=== PATIENT | male | born 1950 | race Caucasian/White ===

== ENCOUNTER 2017-07-13 12:39 | Inpatient (IN) | payer MEDICARE, BC ==
[~2017-07-13] VITALS: Ht 175.3 cm; Wt 111.8 kg
[~2017-07-13 12:39] MED LIST: AMBIEN10 MG PO; AMLODIPINE BESY10 MG PO; CIALIS20 MG PO; LISINOPRIL-HCT1 EAC1 PO; LORTAB 10-5001 EACH PO; NEXIUM40 MG PO; SOMA350 MG PO; VITAMIN AND MI1 EACH PO
[2017-07-13] MEDS ORDERED: IPRATROPIUM BROMIDE 0.02% 2.5 ML NEB NEB STA (12:42)
[2017-07-13] MEDS ORDERED: VANCOMYCIN 1GM/NS 250 ML 250 ML IV STA (12:42)
[2017-07-13] MEDS ORDERED: ALBUTEROL SULF 0.083% NEB SOLN 3 ML NEB NEB STA (12:42)
[2017-07-13] MEDS ORDERED: SODIUM CHLORIDE 0.9% 1000ML 1,000 ML IV STA ×3 (12:42→13:07)
[2017-07-13] MEDS: CEFEPIME HCL 2 GM VIAL IV SCH (12:59)
[2017-07-13] MEDS: VANCOMYCIN 1GM/NS 250 ML 250 ML IV SCH (13:11)
--- NOTE | 2017-07-13 13:15 | Diagnostic Imaging Report ---
PROCEDURE: A single AP view of the chest. COMPARISON: Patients [facility], DX, CHEST SINGLE, 07/03/2009, 17:30. INDICATIONS: DEHYDRATED FINDINGS: Lines/tubes: None. Lungs: The lungs are hypoinflated, but grossly clear. There is no evidence of consolidation or pulmonary edema. Pleura: There is no pleural effusion or pneumothorax. Heart and mediastinum: Prominence of the cardiac silhouette and central venous crowding likely due to low lung volumes. Bones: No acute bony abnormality. IMPRESSION: 1. Hypoinflated lungs, without acute cardiopulmonary disease. Garcia Dooley M.D. Dictated by: Garcia Dooley M.D. on 07/13/2017 at 13:22 Electronically approved by: Garcia Dooley M.D. on 07/13/2017 at 13:22
[2017-07-13 13:41] LABS: BASOPHILS % 0.7 % (0.0-1.0); EOSINOPHILS # (AUTO) 0.1 (0.0-0.4); EOSINOPHILS % 1.5 % (0.0-6.0); HEMATOCRIT 34.7 % (38.2-49.6); HEMOGLOBIN 11.4 g/dL (14.0-18.0); LYMPHOCYTES # (AUTO) 1.7 (1.0-3.2); LYMPHOCYTES % 27.3 % (18.0-39.1); MEAN CORPUSCULAR HEMOGLOBIN 33.6 pg (28-32); MEAN CORPUSCULAR HGB CONC 32.9 g/dL (31-35); MEAN CORPUSCULAR VOLUME 102.4 fL (81-99); MONOCYTES # (AUTO) 0.6 (0.2-0.8); NEUTROPHILS # (AUTO) 3.7 (2.1-6.9); PLATELET COUNT 175 x10e3/uL (140-360); RED BLOOD COUNT 3.39 x10e6/uL (4.3-5.7); RED CELL DISTRIBUTION WIDTH 12.9 % (11.7-14.4)
[2017-07-13 13:44] LABS: INR 1.06; PARTIAL THROMBOPLASTIN TIME 40.6 seconds (23.8-35.5); PROTHROMBIN TIME 14.3 seconds (11.9-14.5)
[2017-07-13 13:52] LABS: ALBUMIN 2.8 g/dL (3.5-5.0); ALBUMIN/GLOBULIN RATIO 0.7 (0.8-2.0); ANION GAP 13.4 mmol/L (8-16); CALCIUM 9.1 mg/dL (8.4-10.2); CREATININE, SERUM 1.39 mg/dL (0.72-1.25); MAGNESIUM 1.9 MG/DL (1.3-2.1); POTASSIUM 3.4 mmol/L (3.5-5.1)
[2017-07-13 13:57] LABS: CREATINE KINASE MB 0.6 ng/mL (0.00-5.00); TROPONIN I 0.017 ng/mL (0-0.300)
[2017-07-13] MEDS ORDERED: LIDOCAINE HCL 1% LOCAL INJ 20 ML VIAL INJ ONE (14:15)
[2017-07-13 14:19] LABS: B-TYPE NATRIURETIC PEPTIDE2 96.3 pg/mL (0-100)
[2017-07-13] MEDS ORDERED: SODIUM CHLORIDE 0.9% 500ML 500 ML ONE (14:29)
[2017-07-13] MEDS ORDERED: NOREPINEPHRINE BITARTRATE/ NS 250 ML ONE (14:37)
[2017-07-13] MEDS: NOREPINEPHRINE BITARTRATE/ NS 250 ML IV SCH (14:40)
[2017-07-13] MEDS: SODIUM CHLORIDE 0.9% 1000ML 1,000 ML IV SCH (15:50)
[2017-07-13 16:08] LABS: BILIRUBIN,URINE NEGATIVE (NEGATIVE); CLARITY,URINE CLOUDY (CLEAR); COLOR,URINE YELLOW (YELLOW); KETONES,URINE NEGATIVE (NEGATIVE); LEUKOCYTE ESTERASE ,URINE 2+ (NEGATIVE); PROTEIN,URINE DIPSTICK NEGATIVE (NEGATIVE); URINE UROBILINOGEN 0.2 mg/dL (0.2 - 1)
[2017-07-13 16:11] LABS: NITRITE,URINE POSITIVE (NEGATIVE)
--- NOTE | 2017-07-13 16:18 | Diagnostic Imaging Report ---
Exam: Head CT without contrast History: Altered mental status, weakness Comparison studies: None Technique: Axial images were obtained from the skull base to the vertex. Coronal and sagittal images reconstructed from the axial data. Intravenous contrast: None Findings: Scalp: No abnormalities. Bones: No fractures, blastic or lytic lesions. Brain volume: Generalized volume loss with moderate disproportionate volume loss in the bilateral frontal lobes. Ventricles: Moderate compensatory dilatation of the frontal horns, bodies of the lateral ventricles and third ventricle mild compensatory dilatation of the fourth ventricle. No hydrocephalus. Extra-axial spaces: No masses, no fluid collection. Parenchyma: No mass, acute hemorrhage or acute cortical vascular insults. Confluent hypodensities in the supratentorial white matter are nonspecific most compatible with chronic small vessel ischemic changes. Small chronic lacunar infarct in the anterior limb of the left internal capsule and along the left thalamic capsular junction. Multiple small chronic insults in the left cerebellum. Sellar/suprasellar region: No abnormalities. Craniocervical junction: Patent foramen magnum. No Chiari one malformation. Incidental findings: Atherosclerotic calcifications in the carotid siphons and right intradural vertebral artery. IMPRESSION: No acute intracranial abnormalities. Chronic findings: 1. Generalized volume loss with a bifrontal predominance. 2. Severe chronic microvascular ischemic changes. 3. Chronic insults in the left cerebellum, anterior limb of the left internal capsule and left thalamic capsular junction. Signed by: Dr. Jacob Marinelli M.D. on 07/13/2017 4:15 PM
[2017-07-13 16:22] LABS: RBC,URINE 21-50 /HPF (0-5); WBC,URINE (MAN) >50 /HPF (0-5)
[2017-07-13 16:23] LABS: BACTERIA,URINE MANY /HPF; EPITHELIAL CELLS,URINE RARE /LPF
--- NOTE | 2017-07-13 16:28 | Diagnostic Imaging Report ---
PROCEDURE:US ABDOMEN LIMITED COMPARISON:None. INDICATIONS:Eval For Ascites TECHNIQUE: Villafuerte-scale and color doppler transverse and longitudinal images of the abdominal quadrants were obtained. FINDINGS: No ascites is visualized. CONCLUSION: 1. No ascites Garcia Dooley M.D. Dictated by: Garcia Dooley M.D. on 07/13/2017 at 16:36 Electronically approved by: Garcia Dooley M.D. on 07/13/2017 at 16:36
--- NOTE | 2017-07-13 17:41 | History and Physical ---
PRIMARY CARE PHYSICIAN: Dr. Vicente. CHIEF COMPLAINT: Unresponsiveness. HISTORY OF PRESENT ILLNESS: This is a 67-year-old man with a history of cirrhosis and hepatic encephalopathy who lives at [facility], now found unresponsive, therefore, brought to the hospital. The patient's daughter said that the patient had been having chills for the past few days. He was found to have urinary tract infection and signs of sepsis and is admitted for further evaluation and management. He has been started on pressors. PAST MEDICAL HISTORY: Hepatic encephalopathy, cirrhosis, severe anemia, gastric ulcer, peptic ulcer disease, status post surgical management, chronic pain, hypertension, GI bleeding, insomnia, vitamin D deficiency. Tobacco use in the form of dipping. PAST SURGICAL HISTORY: Scrotal cyst removal, right total knee replacement in 2008, esophageal dilatation in 2002. ALLERGIES: PER ELECTRONIC MEDICAL RECORDS. SOCIAL HISTORY: The patient is a . He has 2 children. History of alcohol abuse and tobacco abuse. Continues to chew tobacco. MEDICATIONS: Per electronic medical records. REVIEW OF SYSTEMS: Unreliable. PHYSICAL EXAMINATION VITAL SIGNS: Have been reviewed. GENERAL APPEARANCE: A tired-appearing man resting in the bed. HEENT: Anicteric. CARDIOVASCULAR: Normal S1 and S2. LUNGS: Moderate breath sounds, ABDOMEN: Soft and nontender. Nondistended. EXTREMITIES: There is no edema or calf tenderness. NEUROLOGIC: Alert and oriented x2. Moving all extremities. SKIN: Dry. PSYCHIATRIC: Flat affect. LABS: Reviewed. MEDICATIONS: Reviewed. ASSESSMENT AND PLAN: A 67-year-old man. 1. Septic shock, likely due to urinary tract infection. Continue broad-spectrum antibiotics and follow up cultures. 2. Urinary tract infection. Antibiotics. Follow up cultures. 3. Acute kidney injury. Rehydrate and reassess. 4. Hepatic encephalopathy. Ammonia level in the 80s. Use Lactulose 30 grams t.i.d. 5. Hypotension on pressors. 6. Normocytic anemia, mild. Will follow. 7. Physical deconditioning. Physical therapy consultation. 8. Prophylaxis: Use SCDs and Pepcid. DISPOSITION: Monitor closely. Will continue pressors. Critical care time more than 35 minutes. Job#: [id number]
[2017-07-13] MEDS: LACTULOSE SYRUP 20 GM/30 ML UDC PO SCH (18:23)
[2017-07-13] MEDS: FAMOTIDINE 20 MG/2 ML VIAL IV SCH (18:23)
[2017-07-13 21:52] LABS: CREATINE KINASE MB 1.2 ng/mL (0.00-5.00); TROPONIN I 0.017 ng/mL (0-0.300)
[2017-07-14] VITALS (32 sets, daily range): BP systolic 73–144; BP diastolic 47–93
[2017-07-14] MEDS ORDERED: VANCOMYCIN 1GM/NS 250 ML 250 ML IV SCH (02:00)
[2017-07-14] MEDS ORDERED: CEFEPIME HCL 2 GM VIAL IV SCH ×2 (02:00→22:00)
[2017-07-14 04:55] LABS: BASOPHILS # (AUTO) 0.1 (0.0-0.1); EOSINOPHILS # (AUTO) 0.2 (0.0-0.4); EOSINOPHILS % 2.6 % (0.0-6.0); HEMATOCRIT 32.4 % (38.2-49.6); HEMOGLOBIN 10.9 g/dL (14.0-18.0); LYMPHOCYTES # (AUTO) 1.8 (1.0-3.2); LYMPHOCYTES % 29.8 % (18.0-39.1); MEAN CORPUSCULAR HEMOGLOBIN 33.6 pg (28-32); MEAN CORPUSCULAR HGB CONC 33.6 g/dL (31-35); MONOCYTES # (AUTO) 0.5 (0.2-0.8); MONOCYTES % 8.6 % (4.4-11.3); NEUTROPHILS # (AUTO) 3.5 (2.1-6.9); NEUTROPHILS % 57.8 % (38.7-80.0); PLATELET COUNT 135 x10e3/uL (140-360); RED BLOOD COUNT 3.24 x10e6/uL (4.3-5.7); RED CELL DISTRIBUTION WIDTH 12.5 % (11.7-14.4)
[2017-07-14 05:10] LABS: ANION GAP 11.3 mmol/L (8-16); BLOOD UREA NITROGEN 10 mg/dL (7-26); BUN/CREATININE RATIO 13 (6-25); CALCIUM 8.4 mg/dL (8.4-10.2); CARBON DIOXIDE 25 mmol/L (22-29); CHLORIDE 108 mmol/L (98-107); CREATINE KINASE 58 IU/L (30-200); EST GLOMERULAR FILTRATION RATE > 60 ML/MIN (60-); GLUCOSE 124 mg/dL (74-118); POTASSIUM 3.3 mmol/L (3.5-5.1); SODIUM 141 mmol/L (136-145)
[2017-07-14 05:17] LABS: TROPONIN I 0.019 ng/mL (0-0.300)
[2017-07-14] MEDS: NOREPINEPHRINE BITARTRATE/ NS 250 ML IV SCH ×2 (09:00→11:14)
--- NOTE | 2017-07-14 09:05 | Progress Note ---
DATE: July 14, 2017 TIME: 8:30 a.m. OVERNIGHT: No events. REVIEW OF SYSTEMS: Unreliable. VITAL SIGNS: Reviewed. PHYSICAL EXAMINATION GENERAL: A tired-appearing man resting in bed. HEENT: Anicteric. CARDIOVASCULAR: Normal S1 and S2. LUNGS: Moderate breath sounds, mildly coarse. ABDOMEN: Soft and nontender. EXTREMITIES: No edema. SKIN: Dry. PSYCHIATRIC: Flat affect. Alert and oriented times 2. LABS: Reviewed. MEDICATIONS: Reviewed. ASSESSMENT AND PLAN: A 67-year-old man. 1. Septic shock due to urinary tract infection. 2. Urinary tract infection. 3. Acute kidney injury. 4. Hepatic encephalopathy. 5. Normocytic anemia, mild to moderate. 6. Physical deconditioning. 7. Hypokalemia. PLAN 1. Acute kidney injury is improving. 2. Continue pressor support. 3. Continue IV antibiotics. 4. Follow up cultures. 5. Continue current care and monitor closely. 6. Obtain vancomycin trough before the dose this evening and continue cefepime. Critical care time more than 35 minutes. Job#: [id number]
[2017-07-14] MEDS: CEFEPIME HCL 2 GM VIAL IV SCH (10:30)
[2017-07-14] MEDS: VANCOMYCIN 1GM/NS 250 ML 250 ML IV SCH ×2 (10:35→22:50)
[2017-07-14] MEDS: FAMOTIDINE 20 MG/2 ML VIAL IV SCH ×2 (10:57→18:34)
[2017-07-14] MEDS: SODIUM CHLORIDE 0.9% 1000ML 1,000 ML IV SCH ×3 (10:57→19:00)
[2017-07-14] MEDS: LACTULOSE SYRUP 20 GM/30 ML UDC PO SCH ×2 (10:57→18:34)
[2017-07-15] VITALS (54 sets, daily range): BP systolic 62–142; BP diastolic 27–133
[2017-07-15] MEDS: SODIUM CHLORIDE 0.9% 1000ML 1,000 ML IV SCH ×3 (00:32→18:14)
[2017-07-15 07:05] LABS: BASOPHILS % 0.6 % (0.0-1.0); EOSINOPHILS # (AUTO) 0.2 (0.0-0.4); EOSINOPHILS % 2.4 % (0.0-6.0); HEMATOCRIT 30.8 % (38.2-49.6); HEMOGLOBIN 10.5 g/dL (14.0-18.0); LYMPHOCYTES # (AUTO) 1.7 (1.0-3.2); LYMPHOCYTES % 28.1 % (18.0-39.1); MEAN CORPUSCULAR HEMOGLOBIN 33.8 pg (28-32); MEAN CORPUSCULAR HGB CONC 34.1 g/dL (31-35); MONOCYTES # (AUTO) 0.6 (0.2-0.8); MONOCYTES % 9.4 % (4.4-11.3); NEUTROPHILS # (AUTO) 3.7 (2.1-6.9); NEUTROPHILS % 59.3 % (38.7-80.0); PLATELET COUNT 136 x10e3/uL (140-360); RED BLOOD COUNT 3.11 x10e6/uL (4.3-5.7); RED CELL DISTRIBUTION WIDTH 12.3 % (11.7-14.4)
[2017-07-15 07:23] LABS: ANION GAP 10.1 mmol/L (8-16); BLOOD UREA NITROGEN 6 mg/dL (7-26); BUN/CREATININE RATIO 10 (6-25); CALCIUM 8.5 mg/dL (8.4-10.2); CARBON DIOXIDE 27 mmol/L (22-29); CHLORIDE 106 mmol/L (98-107); CREATININE, SERUM 0.62 mg/dL (0.72-1.25); EST GLOMERULAR FILTRATION RATE > 60 ML/MIN (60-); GLUCOSE 106 mg/dL (74-118); MAGNESIUM 1.6 MG/DL (1.3-2.1); POTASSIUM 3.1 mmol/L (3.5-5.1); SODIUM 140 mmol/L (136-145)
--- NOTE | 2017-07-15 07:24 | Progress Note ---
DATE: July 15, 2017 TIME: 6:00 a.m. OVERNIGHT: Patient remains on pressors. REVIEW OF SYSTEMS: Unreliable. PHYSICAL EXAMINATION: VITAL SIGNS: Reviewed. GENERAL APPEARANCE: Tired-appearing man resting in bed. HEENT: Anicteric. CARDIOVASCULAR: Normal S1 and S2. LUNGS: Moderate breath sounds. ABDOMEN: Soft, nontender. EXTREMITIES: No edema. SKIN: Dry. PSYCHIATRIC: Flat affect. NEUROLOGICAL: Confused. LABS: Reviewed. MEDICATIONS: Reviewed. ASSESSMENT: A 67-year-old man: 1. Septic shock due to urinary tract infection. 2. Urinary tract infection. 3. Acute kidney injury. 4. Hepatic encephalopathy. 5. Normocytic anemia, mild to moderate. 6. Acute delirium. 7. Physical deconditioning. 8. Hypokalemia. 9. Gram-negative elizabeth urinary tract infection. 10. Microcytic anemia, mild to moderate. PLAN: 1. Continue IV antibiotics, broad-spectrum, vancomycin and cefepime. 2. Follow up cultures. 3. Continue pressors and wean as appropriate. 4. Continue fluids. 5. Obtain labs this morning. 6. Continue supportive care in the ICU. Critical care time more than 35 minutes. Job#: [id number]
[2017-07-15 07:38] LABS: PHOSPHORUS 2.6 MG/DL (2.3-4.7)
[2017-07-15] MEDS ORDERED: POTASSIUM CHLORIDE 20 MEQ TAB CR PO STA (09:06)
[2017-07-15] MEDS: FAMOTIDINE 20 MG/2 ML VIAL IV SCH ×2 (09:23→17:02)
[2017-07-15] MEDS: LACTULOSE SYRUP 20 GM/30 ML UDC PO SCH ×2 (09:23→17:02)
[2017-07-15] MEDS: VANCOMYCIN 1GM/NS 250 ML 250 ML IV SCH (11:00)
[2017-07-15] MEDS: MEROPENEM 500 MG VIAL IV SCH ×3 (12:54→23:47)
[2017-07-15] MEDS ORDERED: PNEUMOCOCCAL VACCINE POLYVALENT 23 MCG/0.5 ML VIAL IM NR (13:00)
[2017-07-15] MEDS ORDERED: INFLUENZA VIRUS VAC SPLIT INJ 0.5 ML SYR IM NR (13:00)
--- NOTE | 2017-07-15 13:52 | Consultation ---
DATE OF CONSULTATION: July 15, 2017 INFECTIOUS DISEASE CONSULTATION ATTENDING PHYSICIAN: Dr. Dylan Warner REASON FOR CONSULTATION: ESBL in urine. Thank you, Dr. Warner, for asking me to see this patient. HISTORY: The patient is a 67-year-old man referred for ESBL in urine. He is unable to give a reliable history due to confusion. The chart review showed that he was admitted through the emergency department with possible severe sepsis with shock. He was sent to the emergency department from a residential on 07/13/2017 with altered mental status and hypotension. In the emergency department, he was noted to have temperature of 97.4 degrees Fahrenheit, pulse 66, respiratory rate 24, blood pressure 69/48, and oxygen saturation 96% on room air. Initial laboratory studies showed white blood cell count of 6,110 with 60% neutrophils, BUN 13, creatinine 1.39, AST 62, ALT 30, alk phos 203, total bilirubin 2.1, and serum ammonia 81. Brain CT scan showed no acute findings. Chest x-ray showed hypoinflated lungs without acute cardiopulmonary disease. Also, abdominal ultrasound showed no ascites. PAST MEDICAL HISTORY 1. Hypertension. 2. Alcoholic liver cirrhosis. 3. Hepatic encephalopathy. 4. Peptic ulcer disease. 5. Gastrointestinal bleed 6. Chronic pain. PAST SURGICAL HISTORY 1. Scrotal cyst removal. 2. Right total knee arthroplasty. ALLERGIES: NO KNOWN DRUG ALLERGIES. MEDICATIONS: The current antibiotics are vancomycin 1 g IV piggyback q.12 h. and meropenem 500 mg IV piggyback q.8 h. IMMUNIZATIONS: The patient claimed that he has not received influenza or pneumococcal vaccination. FAMILY HISTORY: Noncontributory. SOCIAL HISTORY: He chews tobacco. Also, he drank alcohol a lot. He currently resides in a residential. REVIEW OF SYSTEMS: Patient denies fever, chills, cough, shortness of breath, nausea, vomiting, diarrhea. PHYSICAL EXAMINATION GENERAL: No acute distress. VITAL SIGNS: T-max 98.9, pulse 83, respiratory rate 18, blood pressure 122/72, weight 253 pounds. HEENT: Normocephalic. There is no icterus or injection of conjunctivae. There is no ear or nasal discharge. Moist oral mucosa. No pharyngeal erythema or exudate. NECK: Supple. No lymphadenopathy. LUNGS: Good air entry bilaterally. HEART: Normal S1 and S2. ABDOMEN: Soft, nontender. EXTREMITIES: No edema, clubbing or cyanosis. SKIN: There is old ecchymosis. No acute erythema. BIOMEDICAL SERVICE ENGINEER: Awake but confused. LABORATORY: WBC 6190, hemoglobin 10.5, platelets 136,000, neutrophils 69.3, lymphocytes 28.1, monocytes 9.4, eosinophils 2.4, basophils 0.6. BUN 6, creatinine 0.62. Blood culture no growth. Urine culture grew Escherichia coli, ESBL positive. IMPRESSION 1. Urinary tract infection with sepsis due to Escherichia coli, extended spectrum beta lactamase positive. 2. Hepatic encephalopathy. 3. Alcoholic liver cirrhosis. PLAN 1. Change meropenem to 500 mg IV piggyback q.6 h. and stop vancomycin. Administer influenza and pneumococcal vaccinations if not yet given. 2. I will discuss tobacco cessation when the confusion improves. Job#: [id number]
[2017-07-15] MEDS ORDERED: MEROPENEM 500MG 500 MG in SODIUM CHLORIDE 0.9% 50ML 50 ML IV SCH (14:00)
[2017-07-15] MEDS ORDERED: MEROPENEM 500 MG VIAL IV SCH (14:00)
[2017-07-15] MEDS: NOREPINEPHRINE BITARTRATE/ NS 250 ML IV SCH (14:42)
[2017-07-15] MEDS ORDERED: LORAZEPAM INJ 2 MG/ML VIAL IV PRN (16:00)
[2017-07-15] MEDS: QUETIAPINE FUMARATE 25 MG TAB PO SCH (17:02)
[2017-07-16] VITALS (33 sets, daily range): BP systolic 61–157; BP diastolic 39–95
[2017-07-16] MEDS: SODIUM CHLORIDE 0.9% 1000ML 1,000 ML IV SCH ×3 (03:20→19:35)
[2017-07-16] MEDS: MEROPENEM 500 MG VIAL IV SCH ×3 (06:06→17:13)
--- NOTE | 2017-07-16 06:16 | Progress Note ---
DATE: July 16, 2017 TIME: 5:41 a.m. OVERNIGHT: No events. Patient off pressors. Remains confused. REVIEW OF SYSTEMS: Denies any chest pain. PHYSICAL EXAMINATION VITAL SIGNS: Reviewed. GENERAL: Tired-appearing man resting in bed. HEENT: Anicteric. CARDIOVASCULAR: Normal S1/S2. LUNGS: Moderate breath sounds. ABDOMEN: Soft, nontender. EXTREMITIES: No edema. SKIN: Dry. PSYCHIATRIC: Flat affect. NEUROLOGICAL: Confused. LABS: Reviewed. MEDICATIONS: Reviewed. ASSESSMENT: A 67-year-old man. 1. Septic shock due to urinary tract infection. 2. Urinary tract infection. 3. Acute kidney injury. 4. Hepatic encephalopathy. 5. Normocytic anemia, mild to moderate. 6. Acute delirium. 7. Physical deconditioning. 8. Hypokalemia. 9. Microcytic anemia, mild to moderate. 10. Extended spectrum beta-lactamase Escherichia coli urinary tract infection. PLAN 1. Continue IV meropenem. 2. Continue IV fluids. 3. Continue Seroquel. 4. Transfer to the floor. 5. Continue supportive care, off of pressors, doing well. 6. Check potassium level today. CRITICAL CARE TIME: More than 35 minutes. Job#: [id number] CQ
[2017-07-16] MEDS: FAMOTIDINE 20 MG/2 ML VIAL IV SCH ×2 (08:33→17:13)
[2017-07-16] MEDS: QUETIAPINE FUMARATE 25 MG TAB PO SCH ×2 (08:33→22:56)
[2017-07-16] MEDS: LACTULOSE SYRUP 20 GM/30 ML UDC PO SCH ×2 (08:33→17:13)
[2017-07-16] MEDS ORDERED: POTASSIUM CHLORIDE 20MEQ/15ML UDC NG ONE (11:00)
[2017-07-16] MEDS: NOREPINEPHRINE BITARTRATE/ NS 250 ML IV SCH (13:51)
[2017-07-17] VITALS: BP 138/73
[2017-07-17] MEDS: MEROPENEM 500 MG VIAL IV SCH ×4 (00:32→17:58)
[2017-07-17 04:00] VITALS: BP 145/81
[2017-07-17] MEDS: SODIUM CHLORIDE 0.9% 1000ML 1,000 ML IV SCH ×3 (05:06→22:02)
[2017-07-17 08:00] VITALS: BP 150/84
[2017-07-17] MEDS: LACTULOSE SYRUP 20 GM/30 ML UDC PO SCH ×2 (09:15→17:58)
[2017-07-17] MEDS: FAMOTIDINE 20 MG/2 ML VIAL IV SCH ×2 (09:15→17:58)
[2017-07-17] MEDS: QUETIAPINE FUMARATE 25 MG TAB PO SCH ×2 (09:15→21:00)
[2017-07-17 12:00] VITALS: BP 140/78
[2017-07-17 16:00] VITALS: BP 137/87
[2017-07-17 20:00] VITALS: BP 145/81
[2017-07-18] VITALS: BP 152/77
[2017-07-18] MEDS: MEROPENEM 500 MG VIAL IV SCH ×4 (00:28→18:00)
[2017-07-18] MEDS: SODIUM CHLORIDE 0.9% 1000ML 1,000 ML IV SCH ×3 (03:00→22:01)
[2017-07-18 04:00] VITALS: BP 130/67
[2017-07-18 08:00] VITALS: BP 174/102
[2017-07-18] MEDS: LACTULOSE SYRUP 20 GM/30 ML UDC PO SCH ×2 (09:41→18:00)
[2017-07-18] MEDS: FAMOTIDINE 20 MG/2 ML VIAL IV SCH ×2 (09:41→18:00)
[2017-07-18] MEDS: QUETIAPINE FUMARATE 25 MG TAB PO SCH ×2 (09:41→21:58)
[2017-07-18 10:43] LABS: BASOPHILS % 0.8 % (0.0-1.0); EOSINOPHILS # (AUTO) 0.2 (0.0-0.4); EOSINOPHILS % 3.3 % (0.0-6.0); HEMATOCRIT 31.8 % (38.2-49.6); HEMOGLOBIN 10.5 g/dL (14.0-18.0); LYMPHOCYTES # (AUTO) 1.6 (1.0-3.2); LYMPHOCYTES % 32.3 % (18.0-39.1); MEAN CORPUSCULAR HEMOGLOBIN 32.9 pg (28-32); MEAN CORPUSCULAR VOLUME 99.7 fL (81-99); MONOCYTES # (AUTO) 0.5 (0.2-0.8); MONOCYTES % 9.5 % (4.4-11.3); NEUTROPHILS # (AUTO) 2.6 (2.1-6.9); NEUTROPHILS % 53.9 % (38.7-80.0); PLATELET COUNT 140 x10e3/uL (140-360); RED BLOOD COUNT 3.19 x10e6/uL (4.3-5.7); RED CELL DISTRIBUTION WIDTH 12.4 % (11.7-14.4)
[2017-07-18 11:08] LABS: ANION GAP 10.5 mmol/L (8-16); BLOOD UREA NITROGEN < 5 mg/dL (7-26); CALCIUM 8.4 mg/dL (8.4-10.2); CARBON DIOXIDE 28 mmol/L (22-29); CHLORIDE 121 mmol/L (98-107); CREATININE, SERUM 0.62 mg/dL (0.72-1.25); EST GLOMERULAR FILTRATION RATE > 60 ML/MIN (60-); GLUCOSE 105 mg/dL (74-118); MAGNESIUM 1.6 MG/DL (1.3-2.1); PHOSPHORUS 3.1 MG/DL (2.3-4.7); POTASSIUM 3.5 mmol/L (3.5-5.1); SODIUM 156 mmol/L (136-145)
[2017-07-18 11:15] LABS: BUN/CREATININE RATIO 8 (6-25)
[2017-07-18 12:00] VITALS: BP 138/83
--- NOTE | 2017-07-18 13:43 | Progress Note ---
DATE: July 17, 2017 MEDICINE PROGRESS NOTE TIME OF SERVICE: 7 a.m. SUBJECTIVE: Overnight no events. REVIEW OF SYSTEMS: Denies any dizziness but remains confused. VITAL SIGNS: Reviewed. PHYSICAL EXAMINATION GENERAL APPEARANCE: A tired-appearing man resting in bed. HEENT: Anicteric. CARDIOVASCULAR: Normal S1/S2. LUNGS: Moderate breath sounds. ABDOMEN: Soft, nontender, nondistended. EXTREMITIES: No edema. SKIN: Dry. PSYCHIATRIC: Flat affect. LABS: Reviewed. MEDICATIONS: Reviewed. ASSESSMENT: A 67-year-old man. 1. Septic shock due to his urinary tract infection. 2. Urinary tract infection. 3. Acute kidney injury. 4. Hepatic encephalopathy. 5. Normocytic anemia. 6. Acute delirium. 7. Physical deconditioning. 8. Hypokalemia. 9. Microcytic anemia. 10. Extended-spectrum beta-lactamase Escherichia coli urinary tract infection. PLAN 1. Continue IV meropenem. 2. Continue IV fluids. 3. Continue Seroquel. 4. Await improvement in the cognition although this may be baseline. Job#: [id number] EV
--- NOTE | 2017-07-18 13:46 | Progress Note ---
DATE: July 18, 2017 MEDICINE PROGRESS NOTE TIME OF SERVICE: 6:39 a.m. SUBJECTIVE: Overnight no events. REVIEW OF SYSTEMS: Denies any dizziness. VITAL SIGNS: Reviewed. PHYSICAL EXAMINATION GENERAL APPEARANCE: A tired-appearing man resting in bed. HEENT: Anicteric. CARDIOVASCULAR: Normal S1/S2. LUNGS: Moderate breath sounds. ABDOMEN: Soft, nontender, nondistended. EXTREMITIES: No edema. SKIN: Dry. PSYCHIATRIC: Flat affect. LABS: Reviewed. MEDICATIONS: Reviewed. ASSESSMENT: A 67-year-old man. 1. Septic shock due to urinary tract infection. 2. Urinary tract infection. 3. Acute kidney injury. 4. Hepatic encephalopathy. 5. Normocytic anemia. 6. Physical deconditioning. 7. Hypokalemia. 8. Microcytic anemia, mild. 9. Extended-spectrum beta-lactamase Escherichia coli urinary tract infection. PLAN 1. He is on IV meropenem. 2. Continue lactulose. 3. Continue Seroquel. 4. Continue Pepcid. 5. Ativan p.r.n. 6. Obtain labs this morning. Job#: [id number] EV
[2017-07-18 16:00] VITALS: BP 148/90
[2017-07-18 20:00] VITALS: BP 128/79
[2017-07-19] VITALS: BP 148/84
[2017-07-19] MEDS: MEROPENEM 500 MG VIAL IV SCH ×4 (01:01→18:07)
[2017-07-19] MEDS: SODIUM CHLORIDE 0.9% 1000ML 1,000 ML IV SCH ×4 (03:00→19:25)
[2017-07-19 04:00] VITALS: BP 142/81
[2017-07-19 08:19] VITALS: BP 156/90
[2017-07-19] MEDS: QUETIAPINE FUMARATE 25 MG TAB PO SCH ×2 (09:10→21:30)
[2017-07-19] MEDS: LACTULOSE SYRUP 20 GM/30 ML UDC PO SCH ×2 (09:10→18:07)
[2017-07-19] MEDS: FAMOTIDINE 20 MG/2 ML VIAL IV SCH ×2 (09:10→18:07)
[2017-07-19 16:14] VITALS: BP 146/92
[2017-07-19 20:00] VITALS: BP 118/55
[2017-07-20] VITALS: BP 146/88
[2017-07-20] MEDS: MEROPENEM 500 MG VIAL IV SCH ×4 (00:02→18:39)
[2017-07-20] MEDS: SODIUM CHLORIDE 0.9% 1000ML 1,000 ML IV SCH ×3 (04:08→20:22)
[2017-07-20 04:40] VITALS: BP 152/94
[2017-07-20] MEDS: FAMOTIDINE 20 MG/2 ML VIAL IV SCH ×2 (10:13→17:23)
[2017-07-20] MEDS: QUETIAPINE FUMARATE 25 MG TAB PO SCH ×2 (10:13→20:20)
[2017-07-20] MEDS: LACTULOSE SYRUP 20 GM/30 ML UDC PO SCH ×2 (10:13→17:23)
[2017-07-20 10:21] VITALS: BP 153/85
[2017-07-20 12:14] VITALS: BP 157/87
--- NOTE | 2017-07-20 13:54 | Progress Note ---
DATE: July 20, 2017 This is an ID cross cover for Dr. Gilbert. The patient is alert and responsive. He is in no acute distress. He is not coughing currently. No dyspnea at rest. No report of vomiting. No report of diarrhea. No overt medication reaction reported. PHYSICAL EXAMINATION VITALS: In the past 24 hours, his maximum temperature was up to 98.7 degrees Fahrenheit. He is hemodynamically stable. HEENT: There is no pallor. No icterus. No oropharyngeal lesions. NECK: Supple. CHEST: Symmetric. Lungs are clear. HEART: Sounds are regular without significant murmur. ABDOMEN: Soft. Bowel sounds are present. EXTREMITIES: There is no acute erythema of his extremities. His white count on July 18, 2017, was 4.8. His creatinine is 0.6. Urine culture from July 13, 2017, grew E. coli ESBL positive strain. Blood cultures from July 13, 2017, were negative. IMPRESSION: He is on treatment for urinary tract infection with sepsis due to extended spectrum beta-lactamase positive strain of Escherichia coli. He had hepatic encephalopathy. There is a history of alcoholic liver disease with cirrhosis. He is afebrile still from the infectious disease point. I suggest continue current antibiotic treatment. Monitor temperature, CBC and renal function. Continue to monitor clinical response to treatment. Job#: [id number] ACACIA
[2017-07-20 16:26] VITALS: BP 161/87
[2017-07-20 20:14] VITALS: BP 136/68
[2017-07-21] MEDS: MEROPENEM 500 MG VIAL IV SCH ×4 (00:19→17:47)
[2017-07-21 00:23] VITALS: BP 145/77
--- NOTE | 2017-07-21 04:29 | Progress Note ---
DATE: July 20, 2017 TIME: 6:30 a.m. OVERNIGHT: No events. REVIEW OF SYSTEMS: Unreliable. PHYSICAL EXAMINATION VITAL SIGNS: Reviewed. GENERAL: A tired-appearing man resting in bed. HEENT: Anicteric. CARDIOVASCULAR: Normal S1 and S2. LUNGS: Moderate breath sounds. ABDOMEN: Soft, nontender and nondistended. EXTREMITIES: No edema. SKIN: Dry. PSYCHIATRIC: Flat affect. LABS: Reviewed. MEDICATIONS: Reviewed. ASSESSMENT: A 67-year-old man with: 1. Septic shock due to urinary tract infection. 2. Acute kidney injury. 3. Hepatic encephalopathy. 4. Normocytic anemia. 5. Physical deconditioning. 6. Hypokalemia. 7. Microcytic anemia, mild. 8. Extended spectrum beta-lactamase Escherichia coli urinary tract infection. PLAN 1. Continue IV meropenem. 2. Discharge planning. 3. Retest sodium level. Job#: [id number] RI
--- NOTE | 2017-07-21 04:35 | Progress Note ---
DATE: July 19, 2017 TIME: 6:30 a.m. OVERNIGHT: No events. REVIEW OF SYSTEMS: Unreliable. PHYSICAL EXAMINATION VITAL SIGNS: Reviewed. GENERAL: A tired-appearing man. ABDOMEN: Soft, nontender and nondistended. EXTREMITIES: No edema. SKIN: Dry. PSYCHIATRIC: Flat affect. LABS: Reviewed. MEDICATIONS: Reviewed. ASSESSMENT: A 67-year-old man with: 1. Septic shock due to urinary tract infection. 2. Urinary tract infection. 3. Acute kidney injury. 4. Metabolic encephalopathy. 5. Normocytic anemia. 6. Physical deconditioning. 7. Hypokalemia. 8. Extended spectrum beta-lactamase Escherichia coli urinary tract infection. PLAN 1. Continue IV meropenem. 2. Continue physical therapy. 3. Continue bowel regimen. 4. Discharge planning. Job#: [id number] ACACIA
[2017-07-21 05:06] VITALS: BP 145/69
[2017-07-21 06:00] LABS: BASOPHILS % 0.7 % (0.0-1.0); EOSINOPHILS # (AUTO) 0.2 (0.0-0.4); EOSINOPHILS % 3.3 % (0.0-6.0); HEMATOCRIT 31.2 % (38.2-49.6); HEMOGLOBIN 10.4 g/dL (14.0-18.0); LYMPHOCYTES # (AUTO) 1.6 (1.0-3.2); LYMPHOCYTES % 36.4 % (18.0-39.1); MEAN CORPUSCULAR HEMOGLOBIN 32.9 pg (28-32); MEAN CORPUSCULAR HGB CONC 33.3 g/dL (31-35); MEAN CORPUSCULAR VOLUME 98.7 fL (81-99); MONOCYTES # (AUTO) 0.5 (0.2-0.8); MONOCYTES % 10.2 % (4.4-11.3); NEUTROPHILS # (AUTO) 2.2 (2.1-6.9); NEUTROPHILS % 49.2 % (38.7-80.0); PLATELET COUNT 131 x10e3/uL (140-360); RED BLOOD COUNT 3.16 x10e6/uL (4.3-5.7); RED CELL DISTRIBUTION WIDTH 12.3 % (11.7-14.4)
[2017-07-21 06:27] LABS: ANION GAP 10.2 mmol/L (8-16); BLOOD UREA NITROGEN < 5 mg/dL (7-26); CALCIUM 8.3 mg/dL (8.4-10.2); CARBON DIOXIDE 25 mmol/L (22-29); CHLORIDE 108 mmol/L (98-107); EST GLOMERULAR FILTRATION RATE > 60 ML/MIN (60-); GLUCOSE 98 mg/dL (74-118); MAGNESIUM 1.7 MG/DL (1.3-2.1); PHOSPHORUS 2.9 MG/DL (2.3-4.7); POTASSIUM 3.2 mmol/L (3.5-5.1); SODIUM 140 mmol/L (136-145)
[2017-07-21 06:28] LABS: BUN/CREATININE RATIO 10 (6-25)
[2017-07-21 08:00] VITALS: BP 158/69
[2017-07-21] MEDS: QUETIAPINE FUMARATE 25 MG TAB PO SCH ×2 (09:00→20:26)
[2017-07-21] MEDS: LACTULOSE SYRUP 20 GM/30 ML UDC PO SCH ×2 (09:00→17:00)
[2017-07-21] MEDS: FAMOTIDINE 20 MG/2 ML VIAL IV SCH ×2 (09:00→17:00)
[2017-07-21 12:00] VITALS: BP 159/97
--- NOTE | 2017-07-21 13:51 | Progress Note ---
DATE: July 21, 2017 This is ID cross-cover for Dr. Gilbert. The patient is fairly stable. He is in no distress. I met him asleep. He has no pain complaints. No respiratory, gastrointestinal, or genitourinary complaints. PHYSICAL EXAMINATION: VITALS: In the past 24 hours, his maximum temperature was up to 98.8 degrees Fahrenheit. She is stable hemodynamically. HEENT: She has no pallor. No icterus. No oropharyngeal lesions. NECK: Supple. CHEST: Symmetric. LUNGS: Clear. HEART: Sounds are regular without any murmur. ABDOMEN: Soft. Bowel sounds are present. EXTREMITIES: There is no acute erythema of the extremities. LABS: His white count is 4.5 Creatinine is 0.5. A urine culture from July 13, 2017 grew E. coli, ESBL positive strain. Blood cultures were negative. IMPRESSION: He is afebrile. No significant leukocytosis. He has been on treatment for urinary tract infection due to multi-drug resistant Escherichia coli, ESBL positive. The patient is stable from infectious disease point. I suggest continue current management, continue supportive care. Job#: [id number] BERNABE
[2017-07-21] MEDS ORDERED: POTASSIUM CHLORIDE 20 MEQ TAB CR PO ONE (15:30)
[2017-07-21 16:00] VITALS: BP 150/99
[2017-07-21 20:00] VITALS: BP 120/69
[2017-07-22] VITALS: BP 147/87
[2017-07-22] MEDS: MEROPENEM 500 MG VIAL IV SCH ×4 (00:18→23:28)
[2017-07-22 04:00] VITALS: BP 135/83
[2017-07-22 08:21] VITALS: BP 136/78
[2017-07-22] MEDS: QUETIAPINE FUMARATE 25 MG TAB PO SCH ×2 (09:00→22:10)
[2017-07-22] MEDS: FAMOTIDINE 20 MG/2 ML VIAL IV SCH ×2 (09:00→16:22)
[2017-07-22] MEDS: LACTULOSE SYRUP 20 GM/30 ML UDC PO SCH ×2 (09:00→16:22)
[2017-07-22 20:00] VITALS: BP 155/80
--- NOTE | 2017-07-22 20:07 | Progress Note ---
DATE: July 22, 2017 SUBJECTIVE: The patient is alert and responsive. He is in no acute distress. He has no respiratory, gastrointestinal or genitourinary complaints. No other systemic complaints reported. OBJECTIVE VITAL SIGNS: In the past 24 hours, maximum temperature was up to 98.6 degrees Fahrenheit. GENERAL: He is hemodynamically stable. HEENT: There is no pallor and no icterus. No oropharyngeal lesions. NECK: Supple. CHEST: Symmetric. LUNGS: Clear. HEART: Sounds are regular. There is no new murmur. ABDOMEN: Soft. Bowel sounds are present. EXTREMITIES: No acute erythema. His white count is 4.5 on July 21. His creatinine 0.5. Urine culture from July 13 grew E. coli, ESBL positive strain resistant to cephalosporins. IMPRESSION: He has been on treatment with meropenem for urinary tract infection and sepsis due to multidrug resistant E. coli, ESBL positive strain. I am told meropenem was started on July 15. Urinary tract infections in men are generally considered to be complicated infections. Anticipate up to 14 days or antibiotic treatment. Continue to monitor temperature, CBC and renal function. Monitor clinical response to treatment. Job#: [id number]
[2017-07-23] VITALS: BP 143/74
[2017-07-23] MEDS: MEROPENEM 500 MG VIAL IV SCH ×3 (06:35→16:36)
[2017-07-23 06:42] LABS: ANION GAP 11.4 mmol/L (8-16); BLOOD UREA NITROGEN 5 mg/dL (7-26); BUN/CREATININE RATIO 9 (6-25); CALCIUM 8.6 mg/dL (8.4-10.2); CARBON DIOXIDE 26 mmol/L (22-29); CHLORIDE 108 mmol/L (98-107); CREATININE, SERUM 0.53 mg/dL (0.72-1.25); EST GLOMERULAR FILTRATION RATE > 60 ML/MIN (60-); GLUCOSE 97 mg/dL (74-118); POTASSIUM 3.4 mmol/L (3.5-5.1); SODIUM 142 mmol/L (136-145)
--- NOTE | 2017-07-23 07:35 | Progress Note ---
DATE: July 23, 2017 SUBJECTIVE: The patient is fairly stable. He is resting quietly. He is in no acute distress. He is not coughing. No dyspnea at rest. No vomiting. No diarrhea. No adverse medication reaction reported. OBJECTIVE: VITAL SIGNS: In the past 24 hours, his maximum temperature was up to 98.1 degrees Fahrenheit. GENERAL: He is hemodynamically stable. HEENT: There is no pallor, no icterus. No oropharyngeal lesions. NECK: Supple. CHEST: Symmetric. LUNGS: Clear. HEART: Sounds are regular. There is no new murmur. ABDOMEN: Soft. Bowel sounds are present. EXTREMITIES: No acute erythema of the extremities. His white count on July 21 was 4.5. His creatinine 0.5. There are no new positive culture reports. IMPRESSION: He is afebrile. He has no leukocytosis. On treatment for urinary tract infection due to extended-spectrum beta-lactamase strain of Escherichia coli. Urinary tract infection in men is usually considered complicated infections. He needs 14 days of antibiotics. Continue meropenem. Job#: [id number]
[2017-07-23] MEDS: QUETIAPINE FUMARATE 25 MG TAB PO SCH ×2 (07:53→21:05)
[2017-07-23] MEDS: FAMOTIDINE 20 MG/2 ML VIAL IV SCH ×2 (07:53→16:36)
[2017-07-23] MEDS: LACTULOSE SYRUP 20 GM/30 ML UDC PO SCH ×2 (07:53→17:27)
[2017-07-23 09:00] VITALS: BP 156/63
[2017-07-23 12:40] VITALS: BP 142/74
[2017-07-23 16:27] VITALS: BP 112/66
[2017-07-23 21:30] VITALS: BP 153/85
[2017-07-24 01:17] VITALS: BP 135/62
[2017-07-24] MEDS: MEROPENEM 500 MG VIAL IV SCH ×4 (05:31→18:00)
[2017-07-24 06:20] VITALS: BP 150/63
[2017-07-24 08:41] VITALS: BP 136/76
[2017-07-24] MEDS: QUETIAPINE FUMARATE 25 MG TAB PO SCH (10:00)
[2017-07-24] MEDS: FAMOTIDINE 20 MG/2 ML VIAL IV SCH ×2 (10:00→18:00)
[2017-07-24] MEDS: LACTULOSE SYRUP 20 GM/30 ML UDC PO SCH ×2 (10:00→18:00)
[2017-07-24 12:18] VITALS: BP 185/87
--- NOTE | 2017-07-24 15:52 | Progress Note ---
DATE: July 24, 2017 ID cross cover for Dr. Gilbert. The patient is fairly stable. He is in no acute distress. The nursing staff reports that he is confused. No respiratory, gastrointestinal or genitourinary complaints reported. PHYSICAL EXAMINATION VITALS: In the past 24 hours, his maximum temperature was up to 98.2 degrees Fahrenheit. He is hemodynamically stable. HEENT: There is no pallor. No icterus. No oropharyngeal lesions. NECK: Supple. CHEST: Symmetric. Lungs are clear. HEART: Sounds are regular. There is no new murmur. ABDOMEN: Soft. Bowel sounds are normal. EXTREMITIES: There is no acute erythema of his extremities. His white count is 4.5 on July 21, 2017. His creatinine is 0.5 on July 23, 2017. There are no new positive culture reports. IMPRESSION: He is afebrile and stable on treatment for extended spectrum beta-lactamase positive strain of Escherichia coli with urinary tract infection. He still from an infectious disease point, I suggest continue current management. Continue supportive care. Job#: [id number] [place]
[2017-07-24 16:19] VITALS: BP 176/88
[2017-07-24 19:55] VITALS: BP 167/91
--- NOTE | 2017-07-25 10:04 | Discharge Summary ---
DISCHARGE DIAGNOSIS: 1. Septic shock secondary to urinary tract infection. 2. Urinary tract infection extended-spectrum beta-lactamase Escherichia coli. 3. Acute kidney injury. 4. Hepatic encephalopathy. 5. Hypotension, resolved. 6. Normocytic anemia. 7. Physical deconditioning. CONSULTANTS: We had Infectious Disease. VITAL SIGNS: His temperature is 97.8, pulse 91, respiratory rate is 18, blood pressure was 136/76 and pulse ox 96% on room air. LAB FINDINGS: Show a white count of 4.5, hemoglobin 10, hematocrit 31, platelets of 131. His coagulations were normal. Chemistry: Sodium 142, potassium 3.4, chloride 108, bicarbonate 26, anion gap of 11, BUN is 5, creatinine is 0.5, and glucose 97. His lactic acid on admission was 19.9. Calcium 8.6, magnesium 1.7. LFTs: Total bilirubin is 2.1, AST is 62, ALT is 30. His ammonia level on admission was 81, and his BNP was 96. His troponins were negative x 3. Albumin is 2.8. Urinalysis consistent with UTI, very cloudy. MICROBIOLOGY: Blood cultures negative. Urine cultures, ESBL E. coli sensitive to Merrem. IMAGING STUDIES: Abdominal ultrasound was no evidence of ascites. Chest x-ray showed no acute cardiopulmonary disease. CT of the brain is generalized volume loss with bifrontal predominance. There are severe chronic microvascular ischemic changes. There are chronic insults in the left cerebellum, anterior limb of the left internal capsule and left thalamic capsular junction. There are no acute findings. HOSPITAL COURSE: This gentleman is a 67-year-old male, morbidly obese, has underlying liver cirrhosis with hepatic encephalopathy, who [facility]. He was found to be unresponsive at the [facility] and came in to the ED. Patient was then admitted, treated for underlying sepsis, hypotension and lactic acidosis. Patient had negative blood cultures and was found to have a urine culture consistent with ESBL E. coli. ID was consulted. Patient continued with IV Merrem while in the hospital. His white count improved, and he improved tremendously. Patient will be discharged with IV antibiotics for an additional 5 more days to complete 14 total days for a complicated UTI as recommended by ID. He did have underlying acute kidney injury, which resolved with IV fluids. His underlying hepatic encephalopathy improved, but he has baseline confusion at baseline. His anemia has been stable with no other issues. On discharge, patient was doing extremely well, back to normal baseline according to the family. He will continue with IV antibiotic therapy at his [facility] at the nursing home facility aspect. On the day of discharge, vital signs were stable, labs reviewed and stable. Patient seen and evaluated and examined thoroughly on the day of discharge with no other complaints. Patient verbalized understanding and agreed with the plan of care, to follow up accordingly as an outpatient with the appropriate consultants. DISCHARGE MEDICATIONS: See medicine reconciliation form including Lasix 40 mg daily and Aldactone 25 mg daily. DISPOSITION: assisted facility, to his [facility]. CONDITION: Stable. DIET: Heart healthy. FOLLOWUP: With your appropriate consultants, especially GI as an outpatient for liver cirrhosis in the next 1 to 2 weeks, PCP in 1 week. In the event of any worsening symptoms, patient advised to come back to the ED for further evaluation. Discharge summary took greater than 35 minutes. BRITTNI DE LA O MD Job#: [id number]
== END 2017-07-24 21:33 | DRG 871 ==
LOC: ER 12:39 → ERHOLD 15:07 → ICU 07-14 14:38 → MED/SURG2 07-16 14:06
PROVIDERS: ADMIT Internal Medicine; ATTEND Internal Medicine
DX: A41.51 Sepsis due to Escherichia coli [E. coli] (principal); R65.21 Severe sepsis with septic shock; N17.9 Acute kidney failure, unspecified; E87.2 Acidosis; N39.0 Urinary tract infection, site not specified; F05 Delirium due to known physiological condition; K72.90 Hepatic failure, unspecified without coma; Z16.12 Extended spectrum beta lactamase (ESBL) resistance; D64.9 Anemia, unspecified; E86.0 Dehydration; K70.30 Alcoholic cirrhosis of liver without ascites; Z87.11 Personal history of peptic ulcer disease; Z23 Encounter for immunization; E87.6 Hypokalemia
CPT/HCPCS: 36415; 70450; 71010; 76705; 80048; 80053; 81001; 82140; 82550; 82553; 82948; 83605; 83735; 83880; 84100; 84132; 84484; 85025; 85610; 85730; 87040; 87086; 87186; 90732; 93005; 93306; 96360; 96376; 97139; 99285; J0692; J2001; J2060; J2185; J3370; J7030; J7040

== ENCOUNTER 2021-08-28 19:49 | Inpatient (IN) | payer MEDICARE, BC ==
[~2021-08-28] VITALS: Ht 175.3 cm; Wt 111.6 kg
[2021-08-28] MEDS ORDERED: SODIUM CHLORIDE 0.9% 1000ML 1,000 ML IV STA ×2 (19:53→20:40)
[2021-08-28 20:15] LABS: BASOPHILS # (AUTO) 0.1 (0.0-0.1); BASOPHILS % 0.4 % (0.0-1.0); EOSINOPHILS % 0.1 % (0.0-6.0); HEMATOCRIT 49.3 % (38.2-49.6); HEMOGLOBIN 15.9 g/dL (14.0-18.0); LYMPHOCYTES # (AUTO) 1.9 (1.0-3.2); LYMPHOCYTES % 12.8 % (18.0-39.1); MEAN CORPUSCULAR HEMOGLOBIN 31.2 pg (28-32); MEAN CORPUSCULAR HGB CONC 32.3 g/dL (31-35); MEAN CORPUSCULAR VOLUME 96.9 fL (81-99); MONOCYTES # (AUTO) 0.8 (0.2-0.8); MONOCYTES % 5.2 % (4.4-11.3); NEUTROPHILS # (AUTO) 11.5 (2.1-6.9); NEUTROPHILS % 76.9 % (38.7-80.0); PLATELET COUNT 158 x10e3/uL (140-360); RED BLOOD COUNT 5.09 x10e6/uL (4.3-5.7); RED CELL DISTRIBUTION WIDTH 14.3 % (11.7-14.4)
[2021-08-28 20:35] LABS: ALBUMIN 3.1 g/dL (3.5-5.0); ANION GAP 16.8 mmol/L (8-16); CALCIUM 8.6 mg/dL (8.4-10.2); CREATININE, SERUM 1.1 mg/dL (0.72-1.25); POTASSIUM 4.8 mmol/L (3.5-5.1)
[2021-08-28] MEDS ORDERED: OCTREOTIDE ACETATE 500 MCG in SODIUM CHLORIDE 0.9% 250ML 250 ML IV STA (20:38)
[2021-08-28 20:52] LABS: B-TYPE NATRIURETIC PEPTIDE2 15.7 pg/mL (0-100); CREATINE KINASE MB 2.8 ng/mL (0-5.0)
[2021-08-28] MEDS ORDERED: SODIUM CHLORIDE 0.9% 1000ML 1,000 ML ONE (20:54)
[2021-08-28] MEDS ORDERED: SODIUM CHLORIDE 0.9% 100 ML ONE (21:00)
[2021-08-28] MEDS ORDERED: IOPAMIDOL 370 MG/ML 200 ML INFUS..BTL INJ ONE (21:00)
[2021-08-28] MEDS: PIPERACILLIN/TAZOBACTAM 3.375 GM in SODIUM CHLORIDE 0.9% 50ML 50 ML IV SCH (21:45)
[2021-08-29] VITALS (9 sets, daily range): BP systolic 119–148; BP diastolic 75–91
[2021-08-29] MEDS ORDERED: PIPERACILLIN/TAZOBACTAM 3.375 GM in SODIUM CHLORIDE 0.9% 50ML 50 ML IV SCH ×2
[2021-08-29 00:15] LABS: BASOPHILS # (AUTO) 0.1 (0.0-0.1); BASOPHILS % 0.4 % (0.0-1.0); EOSINOPHILS % 0.1 % (0.0-6.0); HEMATOCRIT 42.1 % (38.2-49.6); HEMOGLOBIN 13.6 g/dL (14.0-18.0); LYMPHOCYTES # (AUTO) 2.4 (1.0-3.2); LYMPHOCYTES % 17.9 % (18.0-39.1); MEAN CORPUSCULAR HEMOGLOBIN 30.8 pg (28-32); MEAN CORPUSCULAR HGB CONC 32.3 g/dL (31-35); MEAN CORPUSCULAR VOLUME 95.2 fL (81-99); MONOCYTES % 7.1 % (4.4-11.3); NEUTROPHILS # (AUTO) 9.7 (2.1-6.9); PLATELET COUNT 118 x10e3/uL (140-360); RED BLOOD COUNT 4.42 x10e6/uL (4.3-5.7); RED CELL DISTRIBUTION WIDTH 14.5 % (11.7-14.4)
[2021-08-29 00:33] LABS: CREATINE KINASE MB 2.7 ng/mL (0-5.0)
[2021-08-29] MEDS: SODIUM CHLORIDE 0.9% 1000ML 1,000 ML IV SCH ×4 (01:21→20:35)
[2021-08-29] MEDS: PIPERACILLIN/TAZOBACTAM 3.375 GM in SODIUM CHLORIDE 0.9% 50ML 50 ML IV SCH ×4 (01:56→20:34)
[2021-08-29] MEDS ORDERED: SPIRONOLACTONE25 MG PO (03:23)
[2021-08-29] MEDS ORDERED: FUROSEMIDE40 MG PO (03:23)
[2021-08-29] MEDS ORDERED: LACTULOSE20 GM/30 M PO (03:23)
[2021-08-29] MEDS ORDERED: CETIRIZINE HCL10 MG PO (03:23)
[2021-08-29 05:48] LABS: BASOPHILS % 0.4 % (0.0-1.0); EOSINOPHILS % 0.2 % (0.0-6.0); HEMATOCRIT 41.1 % (38.2-49.6); HEMOGLOBIN 13.3 g/dL (14.0-18.0); LYMPHOCYTES # (AUTO) 2.2 (1.0-3.2); LYMPHOCYTES % 20.1 % (18.0-39.1); MEAN CORPUSCULAR HGB CONC 32.4 g/dL (31-35); MEAN CORPUSCULAR VOLUME 95.8 fL (81-99); MONOCYTES # (AUTO) 0.9 (0.2-0.8); MONOCYTES % 7.8 % (4.4-11.3); NEUTROPHILS # (AUTO) 7.7 (2.1-6.9); PLATELET COUNT 127 x10e3/uL (140-360); RED BLOOD COUNT 4.29 x10e6/uL (4.3-5.7); RED CELL DISTRIBUTION WIDTH 14.6 % (11.7-14.4)
[2021-08-29 06:12] LABS: ALBUMIN 2.6 g/dL (3.5-5.0); CALCIUM 7.9 mg/dL (8.4-10.2); CREATININE, SERUM 0.81 mg/dL (0.72-1.25)
[2021-08-29 06:48] LABS: CREATINE KINASE MB 2.4 ng/mL (0-5.0)
[2021-08-30] VITALS (7 sets, daily range): BP systolic 112–136; BP diastolic 76–86
[2021-08-30 00:43] LABS: INR 0.93; PROTHROMBIN TIME 13.1 seconds (11.9-14.5)
[2021-08-30] MEDS: PIPERACILLIN/TAZOBACTAM 3.375 GM in SODIUM CHLORIDE 0.9% 50ML 50 ML IV SCH ×4 (02:30→21:06)
[2021-08-30] MEDS: SODIUM CHLORIDE 0.9% 1000ML 1,000 ML IV SCH ×3 (08:21→23:08)
[2021-08-30] MEDS ORDERED: HEPARIN SOD (PORCINE) 1000 UNIT/ML SDV IV ONE (13:21)
[2021-08-30] MEDS ORDERED: ACETAMINOPHEN 325 MG TAB PO PRN (21:30)
[2021-08-31] VITALS (9 sets, daily range): BP systolic 105–137; BP diastolic 53–88
[2021-08-31] MEDS: PIPERACILLIN/TAZOBACTAM 3.375 GM in SODIUM CHLORIDE 0.9% 50ML 50 ML IV SCH ×4 (02:09→20:45)
[2021-08-31] MEDS: SODIUM CHLORIDE 0.9% 1000ML 1,000 ML IV SCH ×3 (06:12→20:45)
[2021-08-31 06:31] LABS: BASOPHILS % 0.3 % (0.0-1.0); EOSINOPHILS # (AUTO) 0.1 (0.0-0.4); EOSINOPHILS % 0.7 % (0.0-6.0); HEMATOCRIT 38.9 % (38.2-49.6); HEMOGLOBIN 12.7 g/dL (14.0-18.0); LYMPHOCYTES # (AUTO) 2.2 (1.0-3.2); LYMPHOCYTES % 24.5 % (18.0-39.1); MEAN CORPUSCULAR HEMOGLOBIN 30.8 pg (28-32); MEAN CORPUSCULAR HGB CONC 32.6 g/dL (31-35); MEAN CORPUSCULAR VOLUME 94.4 fL (81-99); MONOCYTES # (AUTO) 0.6 (0.2-0.8); NEUTROPHILS # (AUTO) 5.9 (2.1-6.9); NEUTROPHILS % 65.1 % (38.7-80.0); PLATELET COUNT 110 x10e3/uL (140-360); RED BLOOD COUNT 4.12 x10e6/uL (4.3-5.7); RED CELL DISTRIBUTION WIDTH 14.3 % (11.7-14.4)
[2021-08-31 06:47] LABS: ANION GAP 11.1 mmol/L (8-16); CALCIUM 8.7 mg/dL (8.4-10.2); CREATININE, SERUM 0.79 mg/dL (0.72-1.25); POTASSIUM 4.1 mmol/L (3.5-5.1)
[2021-08-31] MEDS ORDERED: LACTULOSE SYRUP 20 GM/30 ML UDC PO ONE (08:30)
[2021-08-31] MEDS: LACTULOSE SYRUP 20 GM/30 ML UDC PO SCH ×2 (16:22→20:45)
[2021-08-31] MEDS ORDERED: BISACODYL 5 MG TAB EC PO ONE (23:30)
[2021-09-01] MEDS: PIPERACILLIN/TAZOBACTAM 3.375 GM in SODIUM CHLORIDE 0.9% 50ML 50 ML IV SCH ×2 (03:19→09:20)
[2021-09-01 04:41] VITALS: BP 128/95
[2021-09-01] MEDS ORDERED: CITRATE OF MAGNESIA 300ML BOTTLE PO ONE ×2 (05:00→07:00)
[2021-09-01] MEDS: SODIUM CHLORIDE 0.9% 1000ML 1,000 ML IV SCH ×2 (05:26→14:16)
[2021-09-01 07:14] LABS: BASOPHILS % 0.3 % (0.0-1.0); EOSINOPHILS # (AUTO) 0.1 (0.0-0.4); EOSINOPHILS % 0.7 % (0.0-6.0); HEMOGLOBIN 12.9 g/dL (14.0-18.0); LYMPHOCYTES # (AUTO) 2.2 (1.0-3.2); LYMPHOCYTES % 24.6 % (18.0-39.1); MEAN CORPUSCULAR HEMOGLOBIN 31.2 pg (28-32); MEAN CORPUSCULAR HGB CONC 33.1 g/dL (31-35); MEAN CORPUSCULAR VOLUME 94.4 fL (81-99); MONOCYTES # (AUTO) 0.7 (0.2-0.8); NEUTROPHILS # (AUTO) 5.7 (2.1-6.9); NEUTROPHILS % 64.6 % (38.7-80.0); PLATELET COUNT 133 x10e3/uL (140-360); RED BLOOD COUNT 4.13 x10e6/uL (4.3-5.7); RED CELL DISTRIBUTION WIDTH 14.7 % (11.7-14.4)
[2021-09-01 07:34] LABS: ANION GAP 12.5 mmol/L (8-16); CALCIUM 8.7 mg/dL (8.4-10.2); CREATININE, SERUM 0.82 mg/dL (0.72-1.25); POTASSIUM 3.5 mmol/L (3.5-5.1)
[2021-09-01 08:00] VITALS: BP 143/92
[2021-09-01 08:48] VITALS: BP 143/92
[2021-09-01] MEDS: LACTULOSE SYRUP 20 GM/30 ML UDC PO SCH ×3 (09:20→20:30)
[2021-09-01 12:03] VITALS: BP 127/76
[2021-09-01] MEDS ORDERED: BISACODYL 5 MG TAB EC PO ONE ×3 (12:30→19:00)
[2021-09-01 16:17] VITALS: BP 140/89
[2021-09-01 20:00] VITALS: BP 140/99
[2021-09-02] VITALS: BP 137/83
[2021-09-02] MEDS: SODIUM CHLORIDE 0.9% 1000ML 1,000 ML IV SCH ×4 (00:04→21:29)
[2021-09-02 04:00] VITALS: BP 132/77
[2021-09-02] MEDS ORDERED: CITRATE OF MAGNESIA 300ML BOTTLE PO ONE (06:30)
[2021-09-02 08:00] VITALS: BP 146/95
[2021-09-02] MEDS: LACTULOSE SYRUP 20 GM/30 ML UDC PO SCH ×3 (08:55→21:29)
[2021-09-02 12:00] VITALS: BP 142/99
[2021-09-02] MEDS ORDERED: PROPOFOL IV EMULSION 10 MG/ML 20 ML VIAL ONE (12:15)
[2021-09-02] MEDS ORDERED: GLUCAGON FOR INJ 1 MG VIAL ONE (12:15)
[2021-09-02] MEDS ORDERED: MIDAZOLAM HCL 2 MG/2 ML VIAL ONE (13:03)
[2021-09-02] MEDS ORDERED: FENTANYL CITRATE/PF 100MCG/2 ML INJ ONE (13:03)
[2021-09-02 20:00] VITALS: BP 131/87
[2021-09-03 00:52] VITALS: BP 131/87
[2021-09-03 04:00] VITALS: BP 122/78
[2021-09-03] MEDS: SODIUM CHLORIDE 0.9% 1000ML 1,000 ML IV SCH (06:47)
[2021-09-03 07:56] VITALS: BP 131/87
[2021-09-03 09:35] VITALS: BP 111/84
== END 2021-09-03 09:52 | disposition home or self-care (01) | DRG 377 ==
LOC: ER 19:55 → ERHOLD 23:50 → IMCU 08-29 01:09
PROVIDERS: ADMIT Internal Medicine; ATTEND Internal Medicine
PROC: 0DBL8ZZ Excision of Transverse Colon, Via Natural or Artificial Opening Endoscopic (ICD-10-PCS; 2021-09-02)
PROC: 0DBN8ZZ Excision of Sigmoid Colon, Via Natural or Artificial Opening Endoscopic (ICD-10-PCS; 2021-09-02)
PROC: 0DBH8ZZ Excision of Cecum, Via Natural or Artificial Opening Endoscopic (ICD-10-PCS; principal; 2021-09-02 14:00)
DX: K57.31 Diverticulosis of large intestine without perforation or abscess with bleeding (principal); U07.1 COVID-19; D69.59 Other secondary thrombocytopenia; E11.9 Type 2 diabetes mellitus without complications; R09.02 Hypoxemia; K70.30 Alcoholic cirrhosis of liver without ascites; K63.5 Polyp of colon; E66.9 Obesity, unspecified; Z68.36 Body mass index [BMI] 36.0-36.9, adult; W18.12XA Fall from or off toilet with subsequent striking against object, initial encounter; D50.0 Iron deficiency anemia secondary to blood loss (chronic)
CPT/HCPCS: 36415; 36555; 45378; 71250; 74174; 78278; 80048; 80053; 82550; 82553; 82948; 83605; 83880; 84484; 85025; 85610; 87040; 88305; 93005; 94799; 96361; 99284; A9512; J1610; J1644; J2250; J2353; J2543; J3010; J7030; J7050; Q9967; U0002

== ENCOUNTER → 2022-08-06 | Day surgery (SDC) | payer MEDICARE, BC ==
[2022-07-31 11:01] LABS: BASOPHILS # (AUTO) 0.1 (0.0-0.1); BASOPHILS % 0.5 % (0.0-1.0); EOSINOPHILS # (AUTO) 0.1 (0.0-0.4); EOSINOPHILS % 0.7 % (0.0-6.0); LYMPHOCYTES # (AUTO) 2.9 (1.0-3.2); LYMPHOCYTES % 24.1 % (18.0-39.1); MEAN CORPUSCULAR HEMOGLOBIN 30.4 pg (28-32); MEAN CORPUSCULAR HGB CONC 31.5 g/dL (31-35); MEAN CORPUSCULAR VOLUME 96.4 fL (81-99); MONOCYTES % 8.1 % (4.4-11.3); NEUTROPHILS # (AUTO) 7.9 (2.1-6.9); NEUTROPHILS % 65.8 % (38.7-80.0); PLATELET COUNT 227 x10e3/uL (140-360); RED CELL DISTRIBUTION WIDTH 13.5 % (11.7-14.4)
[2022-07-31 11:20] LABS: INR 0.99; PROTHROMBIN TIME 13.3 seconds (11.9-14.5)
[2022-07-31 11:21] LABS: PARTIAL THROMBOPLASTIN TIME 31.8 seconds (23.8-35.5)
[2022-07-31 11:27] LABS: ALBUMIN 3.4 g/dL (3.5-5.0); ALBUMIN/GLOBULIN RATIO 0.8 (0.8-2.0); ANION GAP 23.2 mmol/L (8-16); CALCIUM 9.7 mg/dL (8.4-10.2); CREATININE, SERUM 1.22 mg/dL (0.72-1.25); POTASSIUM 4.2 mmol/L (3.5-5.1)
[~2022-08-06] MED LIST changes: +CETIRIZINE HCL10 MG PO; +FUROSEMIDE40 MG PO; +HYOSCYAMINE SULFATE 0.5 MG/ML INJ ONE; +LACTULOSE20 GM/30 M PO; +LIDOCAINE HCL 2% LOCAL INJ 5 ML SDV VIAL INJ ONE; +POVIDONE IODINE 0.05% 0.05 % ML PO ONE; +PROPOFOL IV EMULSION 10 MG/ML 20 ML VIAL ONE; +PROPOFOL IV EMULSION 50 ML IV ONE; +SPIRONOLACTONE25 MG PO
[2022-08-06 12:00] VITALS: BP 145/99
== END | disposition home or self-care (01) ==
LOC: OR 07:56
PROVIDERS: ATTEND Internal Medicine Gastroenterology
DX: Z12.11 Encounter for screening for malignant neoplasm of colon (principal); D12.0 Benign neoplasm of cecum; D12.2 Benign neoplasm of ascending colon; D12.3 Benign neoplasm of transverse colon; K57.30 Diverticulosis of large intestine without perforation or abscess without bleeding; K64.8 Other hemorrhoids; K28.9 Gastrojejunal ulcer, unspecified as acute or chronic, without hemorrhage or perforation; Z71.3 Dietary counseling and surveillance; K74.60 Unspecified cirrhosis of liver; G47.33 Obstructive sleep apnea (adult) (pediatric); R03.0 Elevated blood-pressure reading, without diagnosis of hypertension; Z71.89 Other specified counseling; G62.9 Polyneuropathy, unspecified; F17.220 Nicotine dependence, chewing tobacco, uncomplicated; Z01.810 Encounter for preprocedural cardiovascular examination; Z01.812 Encounter for preprocedural laboratory examination; Z79.899 Other long term (current) drug therapy; Z68.38 Body mass index [BMI] 38.0-38.9, adult; Z86.73 Personal history of transient ischemic attack (TIA), and cerebral infarction without residual deficits; Z80.0 Family history of malignant neoplasm of digestive organs
CPT/HCPCS: 36415; 45380; 45385; 80053; 85025; 85610; 85730; 88305; 93005; J1980; J2001; J2704 ×2; 45378

== ENCOUNTER → 2024-09-11 | Day surgery (SDC) | payer MEDICARE, BC ==
[2024-09-04 12:33] LABS: BASOPHILS % 0.4 % (0.0-1.0); EOSINOPHILS # (AUTO) 0.1 (0.0-0.4); EOSINOPHILS % 0.9 % (0.0-6.0); HEMATOCRIT 44.7 % (38.2-49.6); HEMOGLOBIN 15.4 g/dL (14.0-18.0); LYMPHOCYTES # (AUTO) 1.8 (1.0-3.2); LYMPHOCYTES % 18.4 % (18.0-39.1); MEAN CORPUSCULAR HEMOGLOBIN 31.2 pg (28-32); MEAN CORPUSCULAR HGB CONC 34.5 g/dL (31-35); MEAN CORPUSCULAR VOLUME 90.5 fL (81-99); MONOCYTES # (AUTO) 0.5 (0.2-0.8); MONOCYTES % 5.3 % (4.4-11.3); NEUTROPHILS # (AUTO) 7.4 (2.1-6.9); NEUTROPHILS % 74.7 % (38.7-80.0); PLATELET COUNT 138 x10e3/uL (140-360); RED BLOOD COUNT 4.94 x10e6/uL (4.3-5.7); RED CELL DISTRIBUTION WIDTH 13.2 % (11.7-14.4); WHITE BLOOD COUNT 9.86 x10e3/uL (4.8-10.8)
[2024-09-04 12:50] LABS: INR 0.94; PROTHROMBIN TIME 13.1 seconds (11.9-14.5)
[2024-09-04 12:51] LABS: PARTIAL THROMBOPLASTIN TIME 32.8 seconds (23.8-35.5)
[2024-09-04 13:05] LABS: ALBUMIN 3.7 g/dL (3.5-5.0); ALBUMIN/GLOBULIN RATIO 1.1 (0.8-2.0); ANION GAP 15.5 mmol/L (8-16); BILIRUBIN,TOTAL 0.4 mg/dL (0.2-1.2); CALCIUM 9.2 mg/dL (8.4-10.2); POTASSIUM 4.5 mmol/L (3.5-5.1); TOTAL PROTEIN 7.2 g/dL (6.5-8.1)
[~2024-09-11] MED LIST changes: +ATORVASTATIN CA10 MG PO; +CARDIZEM CD120 MG PO; +ELIQUIS5 MG PO; +GLUCAGON FOR INJ 1 MG VIAL ONE; +GLYCOPYRROLATE INJ 0.2 MG/ML VIAL ONE; -HYOSCYAMINE SULFATE 0.5 MG/ML INJ ONE; +METOCLOPRAMIDE HCL 10 MG/2ML VIAL ONE; -POVIDONE IODINE 0.05% 0.05 % ML PO ONE
[2024-09-11] MEDS: LACTATED RINGER'S 1,000 ML ONE (09:27)
[2024-09-11 11:58] VITALS: TEMP 98.1
[2024-09-11 12:25] VITALS: BP 130/75; PULSE 78; RESP 16; O2SAT 97
== END | disposition home or self-care (01) ==
LOC: OR 08:55
PROVIDERS: ATTEND Internal Medicine Gastroenterology
DX: K74.60 Unspecified cirrhosis of liver (principal); I85.10 Secondary esophageal varices without bleeding; D12.3 Benign neoplasm of transverse colon; K62.1 Rectal polyp; K29.70 Gastritis, unspecified, without bleeding; K21.9 Gastro-esophageal reflux disease without esophagitis; K44.9 Diaphragmatic hernia without obstruction or gangrene; K57.30 Diverticulosis of large intestine without perforation or abscess without bleeding; K64.8 Other hemorrhoids; I48.91 Unspecified atrial fibrillation; F17.220 Nicotine dependence, chewing tobacco, uncomplicated; Z01.810 Encounter for preprocedural cardiovascular examination; Z01.812 Encounter for preprocedural laboratory examination; Z79.02 Long term (current) use of antithrombotics/antiplatelets; Z79.899 Other long term (current) drug therapy; Z80.0 Family history of malignant neoplasm of digestive organs
CPT/HCPCS: 36415; 43239; 45380; 45381; 45385; 80053; 85025; 85610; 85730; 88305; 93005; J1610; J2003; J2470; J2704 ×2; J2765; J7121; 45378